=== PATIENT | male | born 1950 | race Caucasian/White ===

== ENCOUNTER 2021-06-09 14:46 | Inpatient (IN) | payer OTHER, MEDICARE ==
[~2021-06-09] VITALS: Ht 175.3 cm; Wt 116.1 kg
[2021-06-09 14:51] VITALS: BP_SYST 128
[2021-06-09] MEDS ORDERED: NITROGLYCERIN 1 INCH (GM) OINT. TP ONE (15:30)
[2021-06-09] MEDS ORDERED: ASPIRIN 81 MG TAB.CHEW PO ONE (15:30)
[2021-06-09 16:09] LABS: HEMATOCRIT 37.6 % (36-54); HEMOGLOBIN 13.1 g/dL (14.0-18.0)
[2021-06-09 16:11] LABS: BASOPHILS % (AUTO) 0.3 % (0.0-2.0); EOSINOPHILS # (AUTO) 0.1 K/uL (0.0-0.4); EOSINOPHILS % (AUTO) 1.2 % (0.0-4.0); LYMPHOCYTES # (AUTO) 0.9 K/uL (1.0-5.5); LYMPHOCYTES % (AUTO) 11.1 % (20.5-51.5); MEAN CORPUSCULAR HEMOGLOBIN 35 pg (27-31); MEAN CORPUSCULAR HGB CONC 35 % (32-36); MEAN CORPUSCULAR VOLUME 100 fL (79.0-98.0); MONOCYTES % (AUTO) 12.7 % (1.7-9.3); NEUTROPHILS # (AUTO) 5.8 K/uL (1.8-7.7); NEUTROPHILS % (AUTO) 74.7 % (40.0-70.0); PLATELET COUNT (AUTO) 157 K/uL (130-430); RED BLOOD CELL COUNT(AUTO) 3.75 MIL/uL (4.2-6.2); RED CELL DISTRIBUTION WIDTH 13.5 % (9.0-15.0); WHITE BLOOD COUNT (AUTO) 7.7 K/uL (4.8-10.8)
[2021-06-09 17:12] LABS: ANION GAP 13 (5-15); CALCIUM 9.2 mg/dL (8.4-11.0); CHLORIDE 103 mmol/L (98-107); GLUCOSE 172 mg/dL (70-99); POTASSIUM 5.3 mmol/L (3.5-5.1); SODIUM SERUM 137 mmol/L (136-145); TOTAL BILIRUBIN 2.1 mg/dL (0.0-1.0); UREA NITROGEN, BLOOD 36 mg/dL (8-21)
[2021-06-09 17:13] LABS: ALANINE AMINOTRANSFERASE 63 U/L (12-78); ALBUMIN 3.9 g/dL (3.4-4.8); ASPARTATE AMINOTRANSFERASE 32 U/L (10-37)
[2021-06-09 19:15] VITALS: BP_SYST 123
[2021-06-09 21:24] VITALS: BP_SYST 123
[2021-06-09] MEDS: NORMAL SALINE 5 ML DISP.SYRIN IVF SCH (22:00)
[2021-06-10 00:08] VITALS: BP_SYST 143
[2021-06-10] MEDS ORDERED: ACETAMINOPHEN 325 MG TABLET PO PRN (00:45)
[2021-06-10] MEDS ORDERED: NITROGLYCERIN 0.4 MG TAB.SUBL SL PRN (00:45)
[2021-06-10] MEDS ORDERED: MORPHINE 2 MG/ML INJ. SYRINGE IVP PRN (00:45)
[2021-06-10] MEDS: INSULIN REGULAR, HUMAN 100 UNITS/ML, 10 ML VIAL (humuLIN R) SUBCUT PRN ×3 (06:37→17:50)
[2021-06-10] MEDS: NORMAL SALINE 5 ML DISP.SYRIN IVF SCH ×2 (06:38→14:05)
[2021-06-10 08:06] VITALS: BP_SYST 146
[2021-06-10] MEDS ORDERED: METOPROLOL SUCCINATE 50 MG TAB.SR.24H (TOPROL XL) PO ONE (09:00)
[2021-06-10] MEDS ORDERED: BUDESONIDE 0.5 MG/2 ML AMPUL.NEB INH SCH (09:00)
[2021-06-10] MEDS ORDERED: ATORVASTATIN 20 MG TABLET PO ONE (09:00)
[2021-06-10] MEDS ORDERED: OMEP20CA15 PO (09:53)
[2021-06-10] MEDS ORDERED: ESCI20TA PO (09:53)
[2021-06-10] MEDS ORDERED: LIP40 PO (09:53)
[2021-06-10] MEDS ORDERED: METF-518 PO (09:53)
[2021-06-10] MEDS ORDERED: HYDR25TA4 PO (09:53)
[2021-06-10] MEDS ORDERED: FAMO20TA8 PO (09:53)
[2021-06-10] MEDS ORDERED: LISI40TA13 PO (09:53)
[2021-06-10] MEDS ORDERED: NOR10 PO (09:53)
[2021-06-10] MEDS ORDERED: GLIP5TAB26 PO (09:53)
[2021-06-10] MEDS ORDERED: LOM2.5 PO (09:53)
[2021-06-10] MEDS ORDERED: UMEC1BLS IH (09:53)
[2021-06-10] MEDS: ASPIRIN 81 MG TAB.CHEW PO SCH (10:52)
[2021-06-10 11:24] VITALS: BP_SYST 130
[2021-06-10] MEDS: IPRATROPIUM/ALBUTEROL SULFATE 3 ML AMPUL.NEB (DUONEB) INH SCH ×3 (11:29→23:44)
[2021-06-10 15:06] VITALS: BP_SYST 138
[2021-06-10 20:00] VITALS: BP_SYST 126
[2021-06-10] MEDS: BUDESONIDE 0.5 MG/2 ML AMPUL.NEB INH SCH (20:52)
[2021-06-10 23:19] VITALS: BP_SYST 131
[2021-06-11] MEDS: NORMAL SALINE 5 ML DISP.SYRIN IVF SCH ×2 (00:02→06:25)
[2021-06-11] MEDS: INSULIN REGULAR, HUMAN 100 UNITS/ML, 10 ML VIAL (humuLIN R) SUBCUT PRN ×3 (00:06→11:51)
[2021-06-11 01:52] LABS: BILIRUBIN,URINE NEGATIVE (NEGATIVE); BLOOD, URINE NEGATIVE (NEGATIVE); CLARITY/URINE CLEAR (CLEAR); COLOR,URINE YELLOW (YELLOW); GLUCOSE,URINE NEGATIVE (NEGATIVE); KETONES,URINE NEGATIVE (NEGATIVE); LEUKOCYTE ESTERASE ,URINE NEGATIVE (NEGATIVE); NITRITE, URINE NEGATIVE (NEGATIVE); PROTEIN URINE NEGATIVE (NEGATIVE); UROBILINOGEN,URINE 0.2 (0.2-1.0)
[2021-06-11] MEDS: IPRATROPIUM/ALBUTEROL SULFATE 3 ML AMPUL.NEB (DUONEB) INH SCH ×4 (03:49→15:00)
[2021-06-11 07:06] LABS: BASOPHILS % (AUTO) 0.5 % (0.0-2.0); EOSINOPHILS # (AUTO) 0.1 K/uL (0.0-0.4); EOSINOPHILS % (AUTO) 2.2 % (0.0-4.0); HEMATOCRIT 35.3 % (36-54); HEMOGLOBIN 12.4 g/dL (14.0-18.0); LYMPHOCYTES # (AUTO) 1.2 K/uL (1.0-5.5); LYMPHOCYTES % (AUTO) 20.7 % (20.5-51.5); MEAN CORPUSCULAR HEMOGLOBIN 35 pg (27-31); MEAN CORPUSCULAR HGB CONC 35 % (32-36); MEAN CORPUSCULAR VOLUME 100 fL (79.0-98.0); MONOCYTES # (AUTO) 0.6 K/uL (0.0-1.0); MONOCYTES % (AUTO) 9.9 % (1.7-9.3); NEUTROPHILS # (AUTO) 3.9 K/uL (1.8-7.7); NEUTROPHILS % (AUTO) 66.7 % (40.0-70.0); PLATELET COUNT (AUTO) 151 K/uL (130-430); RED BLOOD CELL COUNT(AUTO) 3.54 MIL/uL (4.2-6.2); WHITE BLOOD COUNT (AUTO) 5.8 K/uL (4.8-10.8)
[2021-06-11 07:18] LABS: ALANINE AMINOTRANSFERASE 60 U/L (12-78); ALBUMIN 3.6 g/dL (3.4-4.8); ANION GAP 12 (5-15); ASPARTATE AMINOTRANSFERASE 33 U/L (10-37); CALCIUM 8.9 mg/dL (8.4-11.0); CHLORIDE 100 mmol/L (98-107); CREATININE 1.32 mg/dL (0.55-1.30); GLUCOSE 171 mg/dL (70-99); POTASSIUM 3.9 mmol/L (3.5-5.1); SODIUM SERUM 137 mmol/L (136-145); TOTAL BILIRUBIN 2.1 mg/dL (0.0-1.0); UREA NITROGEN, BLOOD 23 mg/dL (8-21)
[2021-06-11 08:15] VITALS: BP_SYST 126
[2021-06-11 08:15] LABS: CHOLESTEROL 126 mg/dL (<200); HDL CHOLESTEROL 63 mg/dL (>45); LDL CHOLESTEROL 56 mg/dL (<100); TRIGLYCERIDES 51 mg/dL (30-150)
[2021-06-11] MEDS: ASPIRIN 81 MG TAB.CHEW PO SCH (08:46)
[2021-06-11] MEDS ORDERED: ATORVASTATIN 20 MG TABLET PO SCH (09:00)
[2021-06-11] MEDS ORDERED: METOPROLOL SUCCINATE 50 MG TAB.SR.24H (TOPROL XL) PO SCH (09:00)
[2021-06-11] MEDS: BUDESONIDE 0.5 MG/2 ML AMPUL.NEB INH SCH (09:13)
[2021-06-11 13:00] VITALS: BP_SYST 132
[2021-06-11 13:31] VITALS: BP_SYST 132
== END 2021-06-11 13:55 | disposition home or self-care (01) | DRG 313 ==
LOC: SED 14:46 → STU 17:14
PROVIDERS: ADMIT Internal Medicine; ATTEND Internal Medicine
DX: R07.89 Other chest pain (principal); N17.0 Acute kidney failure with tubular necrosis; E78.5 Hyperlipidemia, unspecified; F17.200 Nicotine dependence, unspecified, uncomplicated; E66.01 Morbid (severe) obesity due to excess calories; J43.9 Emphysema, unspecified; I12.9 Hypertensive chronic kidney disease with stage 1 through stage 4 chronic kidney disease, or unspecified chronic kidney disease; Z20.822 Contact with and (suspected) exposure to COVID-19; E11.22 Type 2 diabetes mellitus with diabetic chronic kidney disease; N18.30 Chronic kidney disease, stage 3 unspecified; Z82.5 Family history of asthma and other chronic lower respiratory diseases; Z86.16 Personal history of COVID-19; Z87.01 Personal history of pneumonia (recurrent); Z79.84 Long term (current) use of oral hypoglycemic drugs; Z79.899 Other long term (current) drug therapy; Z68.37 Body mass index [BMI] 37.0-37.9, adult
CPT/HCPCS: 36415; 71045; 80053; 80061; 81003; 82962; 83036; 83735; 83880; 84484; 85025; 93005; 93306; 94640; 94760; 99291; G0378; J1815; J7626